=== PATIENT | female | born 1970 | race Caucasian/White ===

== ENCOUNTER 2019-10-05 20:25 | Emergency (ER) | payer MEDICAID ==
[~2019-10-05] VITALS: Ht 160 cm; Wt 77.1 kg
[2019-10-05 20:35] VITALS: BP 159/96; Ht 160 cm; Wt 77.1 kg
[2019-10-05] MEDS ORDERED: HYDROCODON-ACE1 EA10 PO (20:36)
[2019-10-05] MEDS ORDERED: BP MED (20:37)
[2019-10-05] MEDS ORDERED: CYCLOBENZAPRINE5 MG PO (21:17)
== END 2019-10-05 22:50 | disposition home or self-care (01) ==
LOC: D.ER 20:25
DX: M54.9 Dorsalgia, unspecified (principal); I10 Essential (primary) hypertension; Z72.0 Tobacco use